=== PATIENT | female | born 1980 | race Caucasian/White ===

== ENCOUNTER 2019-01-07 07:52 | Emergency (ER) | payer BC ==
[2019-01-07 08:03] VITALS: BMI 31.5
[2019-01-07 08:04] VITALS: BP 122/83; PULSE 90; RESP 17; TEMP 98.6; O2SAT 98
--- NOTE | 2019-01-07 08:15 | ED PDOC ---
Lower Extremity Pain/Injury Time Seen by Provider: 01/07/19 08:09 Chief Complaint (Provider): L knee pain History Per: Patient History/Exam Limitations: no limitations Onset/Duration Of Symptoms: Days (3-4), Gradual Severity: Moderate Additional Complaint(s): 38yo female c/o left knee pain ongoing and worsening for several days, denies fall/ trauma or injury. Denies twisting. Pain mostly lateral inferior on knee, worsens w walking up or down stairs. No hip or ankle pain. Past Medical History Reviewed: Historical Data, Nursing Documentation, Vital Signs Vital Signs: Last Vital Signs Temp 98.6 F 01/07/19 08:03 Pulse 90 01/07/19 08:03 Resp 17 01/07/19 08:03 BP 122/83 01/07/19 08:03 Pulse Ox 98 01/07/19 08:03 - Medical History PMH: No Chronic Diseases - Family History Family History: States: Unknown Family Hx - Living Arrangements Living Arrangements: With Family - Home Medications Home Medications: Ambulatory Orders Medication Instructions Recorded Naproxen [Naprosyn] 500 mg PO BID PRN #14 tablet 01/07/19 - Allergies Allergies/Adverse Reactions: Allergies Allergy/AdvReac Type Severity Reaction Status Date / Time No Known Allergies Allergy Verified 01/07/19 08:13 Review of Systems Constitutional: Negative for: Fever ENT: Negative for: Throat Pain Gastrointestinal: Negative for: Abdominal Pain Musculoskeletal: Positive for: Leg Pain. Negative for: Neck Pain, Shoulder Pain, Arm Pain, Back Pain, Foot Pain Skin: Negative for: Rash, Lesions Neurological: Negative for: Weakness, Seizures Psych: Negative for: Suicidal ideation Physical Exam - Reviewed Nursing Documentation Reviewed: Yes Vital Signs Reviewed: Yes - Physical Exam Appears: Positive for: Non-toxic, No Acute Distress Head Exam: Positive for: ATRAUMATIC, NORMAL INSPECTION Skin: Positive for: Normal Color, Warm, DRY Neck: Positive for: Normal, Painless ROM Cardiovascular/Chest: Positive for: Regular Rate, Rhythm Respiratory: Positive for: CNT, Normal Breath Sounds Gastrointestinal/Abdominal: Positive for: Soft. Negative for: Tenderness Back: Positive for: Normal Inspection Extremity: Positive for: Tenderness (mild tenderness inferior L patella, no crepitus, no edema, no erythema or warmth, no joint laxity, neg lachmans test, normal ankle/foot/hip ROM) Neurologic/Psych: Positive for: Alert, Oriented - ECG O2 Sat by Pulse Oximetry: 98 Pulse Ox Interpretation: Normal - Radiology X-Ray: Read By Radiologist X-Ray Interpretation: Other (neg for fracture ) Medical Decision Making Medical Decision Making: analgesics and XRay was ordered and reviewed w patient initial diagnostic concerns discussed and ASHLEY wrap applied w instructions for followup w PMD/ orthopedics for definitive care and management, may need MRI if symptoms persist. Rx naprosyn take w small food. Disposition - Clinical Impression Clinical Impression: Knee pain - Patient ED Disposition Is Patient to be Admitted: No Counseled Patient/Family Regarding: Studies Performed, Diagnosis, Need For Followup, Rx Given - Disposition Referrals: [facility] [Provider Group] [facility] [Provider Group] [facility] [Provider Group] Disposition: Routine/Home Disposition Time: 09:40 Condition: STABLE Additional Instructions: See PMD for possible referral to orthopedics if symptoms persist. Take medication as directed. Caution walking on ice. Prescriptions: Naproxen [Naprosyn] 500 mg PO BID PRN #14 tablet PRN Reason: Pain, Moderate (4-7) Instructions: Patellofemoral Pain (DC), Knee Pain Forms: [employer] (I[place]ic)
--- NOTE | 2019-01-07 10:58 | RAD ---
Date of service: 01/07/2019 PROCEDURE: Left Knee Radiographs. HISTORY: Pain. COMPARISON: None. FINDINGS: BONES: No acute fracture. JOINTS: Unremarkable. JOINT EFFUSION: None. OTHER FINDINGS: None. IMPRESSION: No demonstrated fracture or dislocation.
== END 2019-01-07 09:00 | disposition home or self-care (01) ==
LOC: H.ER 07:52
DX: M25.562 Pain in left knee (principal)